=== PATIENT | male | born 1955 | race Caucasian/White ===

== ENCOUNTER → 2018-02-12 16:20 | Outpatient (CLI) | payer BC, SELFPAY ==
--- NOTE | 2018-02-12 16:29 | XR_ITS ---
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 The lungs are clear without infiltrates, suspicious nodules, or pleural effusions. No acute bony abnormalities. Degenerative changes thoracic spine. Old granulomatous disease IMPRESSION: No change with no acute finding.
== END ==
PROVIDERS: PCP Internal Medicine; Visit Provider Nurse Practitioner
DX: L40.0 Psoriasis vulgaris (principal); Z79.899 Other long term (current) drug therapy
CPT/HCPCS: 71046

== ENCOUNTER → 2022-02-16 08:11 | Outpatient (CLI) | payer BC, SELFPAY ==
--- NOTE | 2022-02-16 08:11 | US_ITS ---
FINAL REPORT TECHNIQUE: Multiple transverse and longitudinal images CLINICAL HISTORY: elevated liver enzymes FINDINGS: There are small gallstones without acute gallbladder disease. No biliary ductal dilatation is appreciated. No fluid collections are seen. Limited portions of the right liver are unremarkable. Limited portions of the right kidney are unremarkable. IMPRESSION: 1. Cholelithiasis. 2. No evidence of biliary obstruction Reviewed, Interpreted and Dictated by Gavin Cantrell MD Transcribed by Darby Monzon Authenticated and . [facility]
[2022-02-16 09:46] LABS: Basophils # 0.1 K/mm3 (0-0.2); Eosinophils # 0.2 K/mm3 (0.0-0.4); Eosinophils % 2.7 % (0.1-12.0); Hematocrit 46.1 % (42.0-52.0); Hemoglobin 16.3 g/dL (14.1-18.0); Lymphocytes # 1.7 K/mm3 (0.7-4.5); Lymphocytes % 25.3 % (10-50); Mean Corpuscular HGB Conc 35.3 g/dL (31.8-35.4); Mean Corpuscular Hemoglobin 36.4 pg (27.0-31.2); Mean Corpuscular Volume 103.2 fl (80-94); Mean Platelet Volume 7.2 fl (7.4-10.4); Monocytes # 0.5 K/mm3 (0.1-1.0); Monocytes % 7.5 % (1.7-9.3); Neutrophils # 4.3 K/mm3 (1.8-7.8); Neutrophils % 63.5 % (37.0-80.0); Platelet Count 201 K/mm3 (142-424); Red Blood Count 4.47 M/mm3 (4.60-6.20); Red Cell Distribution Width 14.5 % (11.5-17.5); White Blood Count 6.7 K/mm3 (4.8-10.8)
[2022-02-16 09:50] LABS: INR 1.22 (0.9-1.1)
[2022-02-16 09:54] LABS: Alanine Aminotransferase 639 U/L (12-78); Albumin Level 3.6 g/dl (3.5-5.0); Albumin/Globulin Ratio 1.2 (1.1-1.8); Alkaline Phosphatase 105 U/L (38-126); Anion Gap 13.1 mEq/L (5-15); Aspartate Amino Transferase 220 U/L (17-59); Bilirubin,Total 0.9 mg/dl (0.2-1.3); Blood Urea Nitrogen 28 mg/dl (9-20); Calcium 8.6 mg/dl (8.4-10.2); Carbon Dioxide 28 mmol/L (22.0-30.0); Chloride 102 mmol/L (98-107); Estimated Glomerular Filt Rate 85 ml/min (>60); GFR (African American) 103 ML/MIN (>60); Gamma Glutamyl Transpeptidase 131 U/L (15-73); Globulin 3.1 g/dL (1.3-3.2); Glucose 157 mg/dl (74-100); Lactate Dehydrogenase 237 U/L (313-618); Potassium 4.1 mmoL/L (3.5-5.1); Sodium 139 mmol/L (136-145); Total Protein,Serum 6.7 g/dl (6.3-8.2)
[2022-02-16 10:49] LABS: Erythrocyte Sedimentation Rate 16 mm/hr (0-20)
[2022-02-17 18:39] LABS: Hep A Ab, IgM Negative; Hepatitis B Core Antibody IgM Negative; Hepatitis B Surface Antigen Negative; Hepatitis C Antibody <0.1
== END ==
PROVIDERS: PCP Family Medicine; Visit Provider Family Medicine
DX: R74.8 Abnormal levels of other serum enzymes (principal)
CPT/HCPCS: 36415; 76705; 80053; 80074; 82977; 83615; 85025; 85610; 85651

== ENCOUNTER 2023-04-07 11:14 | Emergency (ER) | payer MEDICARE, SELFPAY ==
[2023-04-07 12:00] VITALS: BP 115/59; PULSE 53; RESP 18; TEMP 36.6; O2SAT 98; BMI 31.7
--- NOTE | 2023-04-07 12:05 | EXP.UTC ---
Discharge Plan Disposition Patient Disposition: Home, Self-Care Condition: Good Prescriptions Prescriptions: New azithromycin [Zithromax] 250 mg tablet 250 mg PO UD DOSE PK Qty: 6 0RF Rx Instructions: Take two (2) tablets today, then one (1) tablet days #2 thru #5 benzonatate [benzonatate] 100 mg capsule 100 mg PO TIDP PRN (Reason: Cough) Qty: 30 0RF methylprednisolone 4 mg Tablets,Dose Pack 4 mg PO DIRECTED Qty: 21 0RF No Action ezetimibe 10 mg tablet 10 mg PO DAILY Farxiga 10 mg tablet 10 mg PO DAILY triamcinolone acetonide 0.1 % cream topical omeprazole 40 mg capsule,delayed release(DR/EC) 40 mg PO DAILY 90 Days Qty: 90 0RF diclofenac sodium 75 mg tablet,delayed release (DR/EC) 75 mg PO BID 30 Days Qty: 60 2RF olmesartan-hydrochlorothiazide 20-12.5 mg tablet See Rx Instructions .ROUTE .COMPLEX Qty: 90 0RF Dose Instruction: Take 1 tablet by mouth Daily. Rx Instructions: Take 1 tablet by mouth Daily. ezetimibe 10 mg tablet 10 mg PO DAILY Skyrizi 150 mg/mL pen injector 150 mg SQ MONTHLY amitriptyline 25 mg tablet 25 mg PO DAILY Referrals Follow up/Referrals: Eric Nelson MD [Primary Care Provider] - See instructions Activity Restrictions/Add. Instructions Additional Instructions/Restrictions: Drink plenty of fluids. Take tylenol or ibuprofen for pain or fever. Take the medications as directed. Follow up with your regular doctor. GO TO THE ER FOR ANY WORSENING SYMPTOMS Clinical Impressions Clinical Impression: Sinusitis Instructions Patient Instructions: Sinusitis, DI for Sinusitis Discharge ED Provider: [place] [facility] [place] General Stated complaint: UPPER RESPITORY Time Seen by Provider: 04/07/23 12:05 History of Present Illness Provider Complaint: He reports that for the past 3 days he has had worsening sinus congestion. Related Data Home Medications Medication Instructions Recorded Confirmed dapagliflozin propanediol 10 mg 10 mg PO DAILY diabetes 02/13/22 04/07/23 tablet (Farxiga) ezetimibe 10 mg tablet 10 mg PO DAILY 09/04/22 04/07/23 triamcinolone acetonide 0.1 % applic topical 12/11/22 03/18/23 topical cream amitriptyline 25 mg tablet 25 mg PO DAILY 04/07/23 04/07/23 ezetimibe 10 mg tablet 10 mg PO DAILY 04/07/23 04/07/23 risankizumab-rzaa 150 mg/mL 150 mg SQ MONTHLY 04/07/23 04/07/23 subcutaneous pen injector (Kaitlinizallen) Previous Rx's Medication Instructions Recorded omeprazole 40 mg capsule,delayed 40 mg PO DAILY GERD 90 days #90 11/12/22 release caps diclofenac sodium 75 mg 75 mg PO BID arthritis 30 days #60 01/08/23 tablet,delayed release tabs olmesartan 20 See Rx Instructions .Route 02/26/23 mg-hydrochlorothiazide 12.5 mg .COMPLEX #90 tabs tablet azithromycin 250 mg tablet 250 mg PO UD DOSE PK #6 tabs 04/07/23 (Zithromax) benzonatate 100 mg capsule 100 mg PO TIDP PRN Cough #30 caps 04/07/23 methylprednisolone 4 mg tablets in 4 mg PO DIRECTED #21 tabs 04/07/23 a dose pack Allergies Allergy/AdvReac Type Severity Reaction Status Date / Time No Known Allergies Allergy Verified 04/07/23 12:19 [facility] Disclaimer: The information contained in this section may have been updated after the patient was seen, as this information can be updated by other users. Medical History Arthritis Diabetes mellitus GERD (gastroesophageal reflux disease) Hyperlipidemia Hypertension Psoriasis Surgical History H/O hernia repair Laceration of right hand with foreign body Family History Mother Coronary artery disease Father Coronary artery disease Social History Smoking Status: Never smoker alcohol intake: current substance use type: chula
[2023-04-07 12:37] VITALS: BP 115/59; PULSE 53; RESP 18; TEMP 36.6; O2SAT 98
== END 2023-04-07 12:37 | disposition home or self-care (01) ==
PROVIDERS: Emergency Provider Nurse Practitioner Family; PCP Family Medicine
DX: J01.90 Acute sinusitis, unspecified (principal); R09.81 Nasal congestion; E11.9 Type 2 diabetes mellitus without complications; E78.5 Hyperlipidemia, unspecified; K21.9 Gastro-esophageal reflux disease without esophagitis; I10 Essential (primary) hypertension; L40.9 Psoriasis, unspecified; Z79.84 Long term (current) use of oral hypoglycemic drugs
CPT/HCPCS: 99204; 99212; G0463

== ENCOUNTER 2025-04-12 13:40 | Outpatient (CLI) | payer MEDICARE, SELFPAY ==
[2025-04-12 13:47] LABS: Adenovirus F 40/41, stool Not Detected (NotDetected); Clostridium Difficile A/B, PCR Not Detected (NotDetected); Cyclospora Cayetanesis Not Detected (NotDetected); Plesimonas Shigalloides, PCR Not Detected (NotDetected); Salmonella, PCR Not Detected (NotDetected); Shiga-like toxin E coli Not Detected (NotDetected); Shigella Enterovasive E coli Not Detected (NotDetected); Vibrio, PCR Not Detected (NotDetected); Yersinia Entercolitica, PCR Not Detected (NotDetected)
--- OUTSIDE RECORDS SUMMARY | 2025-04-12 13:54 | XMS_ITS | Data Portability ---
Author Organization [facility] Emanuel LACEY Huerta [place] [facility] Address [address] [place] [address] Assessment No assessment recorded. Plan of Treatment Reminders Order Date Submit Date Provider Last Modified By Organization Details Last Modified Time Details Appointments None record ed. Lab None record ed. Referral None record ed. Procedures None record ed. Surgeries None record ed. Imaging None record ed. Medication Orders None record ed. Patient TargetsNo targets recorded. Patient Instructions Encounter Date Encounter Id Patient Instructions Last Modified By Organization Details Last Modified Time 04/17/2022 [id number] I have discussed the situation, differential diagnosis, and recommendation with the patient. He express understanding and wishes to proceed as recommended. Thank you for this consultation. [email or web address] Not available 04/17/2022 14:43:41 Reason for Referral None Reported. Results Created Date Observation Date Name Description Value Unit Range Abnormal Flag Note LastModifiedBy Organization Detail LastModifiedTime 04/17/20 22 04/17/2022 HEPAT IC (LIVE R) PANEL AST 32 U/L 0-40 normal Not Available [facility] [address] [place], [address], 04/17/2022 15:54:39 04/17/20 22 04/17/2022 HEPAT IC (LIVE R) PANEL ALT 68 U/L 0-41 high Not Available [facility] [address] [place], [address], 04/17/2022 15:54:39 04/17/20 22 04/17/2022 HEPAT IC (LIVE R) PANEL alkaline phosphatase 71 U/L 40-129 normal Not Available [facility] [address] [place], [address], 04/17/2022 15:54:39 04/17/20 22 04/17/2022 HEPAT IC (LIVE R) PANEL total protein 7.2 g/dL 6.4-8. 3 normal Not Available [facility] [address] [place] [address], [phone], 04/17/2022 15:54:39 04/17/20 22 04/17/2022 HEPAT IC (LIVE R) PANEL albumin 3.8 g/dL 3.5-5. 2 normal Not Available [facility] [address] [place] [address], [phone], 04/17/2022 15:54:39 04/17/20 22 04/17/2022 HEPAT IC (LIVE R) PANEL bilirubin, total 0.5 mg/dL 0.1-1. 2 normal Not Available [facility] [address] [place] [address], [phone], 04/17/2022 15:54:39 04/17/20 22 04/17/2022 HEPAT IC (LIVE R) PANEL bilirubin, direct <0.2 mg/dL 0.0-0. 3 normal Not Available [facility] [address] [place] [address], [phone], 04/17/2022 15:54:39 04/17/20 22 04/17/2022 HEPAT IC (LIVE R) PANEL bilirubin, indirect see below mg/dL _(lc c) 0.0-1. 0 normal Unabl e to calcu late Indir ect Bilir ubin. Not Available [facility] [address] [place] [address], [phone], 04/17/2022 15:54:39 04/17/20 22 04/19/2022 RUPINDER SCREE N, IFA RUPINDER screen NEGATI VE negati ve normal RUPINDER IFA is a first line scree n for detec ting the prese nce of up to appro ximat saurav 150 autoa ntibo dies in vario us autoi mmune disea ses. A negat kavon RUPINDER IFA resul t sugge sts an RUPINDER-a ssoci ated autoi mmune disea se is not prese nt at this time, but is not defin itive . If there is high clini lc suspi cion for Sjogr en's syndr ome, testi ng for anti- SS-A/ Ro antib daniel shoul d be consi dered . Anti- Jessica-1 antib daniel shoul d be consi dered for clini jurgen suspe cted infla mmato ry myopa gertrude . AC-0: Negat kavon Inter natio nal Conse nsus on RUPINDER Malcom rns (http s://d oi.or g/10. 1515/ [facility]2017- 0052) For addit ional infor jen gilbert e refer to http: //[facility].Que stDia gnost ics.c om/fa q/FAQ 177 (This link is being provi ded for infor matio nal/ educa darshana l purpo ses only. ) TEST PERFO RMED AT: [facility] [address] [place] [address] JOSÉ MIGUEL Wood MD Not Available [facility] [place], [address], 04/19/2022 19:41:41 Result Notes None recorded. Problems Name Problem SNOMED Code Status Onset Date Resolution Date Notes Provider Name and Address Organization Details Recorded Time Greater trochante yusef pain syndrome 6089316 Active 2014 From [employer]ated [employer];Provi kaity: Norberto Corcoran;Sta tus: Active Not Available [facility] 6 10:01:56 Idiopathi c osteoarth ritis 111063024 Active 2014 From Automated Load;Provi kaity: Harpreet Schuster;Stat us: Active Not Available [facility] 10:02:38 Gluteal tendiniti s 82694993 Active 2014 From Automated Load;Provi kaity: Brook Rod;Sta tus: Active Not Available [facility] 6 10:02:38 Liver enzymes level above reference range 430719163 Active 2021 LAUREN LOPES MD [address] [place] [address], [phone] , [facility] 2 14:42:31 Problem Notes None recorded. Procedures Surgical History Date Name Laterality Status Provider Name and Address Organization Details Recorded Time 0 colonoscopy completed [facility] 04/17/2022 14:24:31 9 Hernia repair w/mesh completed [facility] 04/17/2022 14:24:18 Imaging Results None recorded. Procedure Notes None recorded. Medical Equipment None Reported. Allergies No known drug allergies Medications Name Sig Start Date Stop Date Status Note LastModified by Organization Details LastModified Time atorvasta tin 40 mg tablet Take 1 tablet every day by oral route. active Not Available Not Available No t Available Keflex 500 mg capsule Four times a day 04/17 completed Frequenc y: qid;Medi cation Descript ion: cephalex in; Dosage:1 ; Route:or al; refills: 0 Not Available Not Available Not Available omeprazol e 40 mg capsule,d elayed release Take 1 capsule every day by oral route. active Not Available Not Available No t Available diclofena c sodium 75 mg tablet,de layed release Take 1 tablet twice a day by oral route. active Not Available Not Available No t Available [place] 7.5 mg-325 mg tablet 04/17 completed Medicati on Descript ion: acetamin ophen-hy drocodon e; Route:or al; refills: 0; Quantity :6 tablet Not Available Not Available Not Available olmesarta n 20 mg-hydroc hlorothia zide 12.5 mg tablet Take 1 tablet every day by oral route. active Not Available Not Available No t Available meloxicam active Not Available Not Nathalie ilable Not Available Centrum Silver active Not Available Not Available Not Available Benicar Daily 04/17 completed Duration : 30 days;Salty quency: daily;Me dication Descript ion: olmesart an; Dosage:1 ; Route:or al; refills: 0; Quantity :30 tablet Not Available Not Available Not Available Farxiga 10 mg tablet Take 1 tablet every day by oral route. active Not Available Not Available No t Available Otezla 30 mg tablet 04/17 completed Medicati on Descript ion: apremila st; Route:or al; refills: 0 Not Available Not Available Not Available Cosentyx active Not Available Not Avai lable Not Available Vitals Date Recorded Body weight Heart rate Respiratory rate Systolic And Diastolic Provider Name and Address Organization Details Last Updated DateTime 04/17/2022 536697.47 g 85 /min 16 /min 132/70 mm[Hg] Eda Ramos [facility] 04/17/2022 14:21:37 Social History Question Answer Notes LastModified by Organizat ion Details LastModified Time Tobacco Smoking Status Never Smoker Edarafael Ramos [facility] 04/17/2022 14:24:05 What Was The Date Of Your Most Recent Tobacco Screening? 04/17/2022 Information not available 04/17/2022 Has Tobacco Cessation Counseling Been Provided? No Information not available 04/17/2022 Sex: Unknown Functional Status Question Answer Note LastModified by Organizat ion Details LastModified Time Do you use any illicit or recreational drugs? No Information not available 04/17/2022 Do you or have you ever used any other forms of tobacco or nicotine? No Information not available 04/17/2022 What is your level of alcohol consumption? Occasional Information not available 04/17/2022 Mental Status None recorded. Family History Nothing Reported. Medical History No medical history recorded. Past Encounters Encounter ID Performer Location Encounter Start Date Encounter Closed Date Diagnosis/Indication Diagnosis SNOMED-CT Code Diagnosis ICD10 Code Diagnosis IMO Codes Diagnosis Note [id number] LAUREN LOPES MD [facility] [address] [facility], [address] [place] [address] 04/17/2022 14:08:09 04/18/2022 08:39:39 Liver enzymes level above reference range 708801497 R74.01 Suspect medication related vs autoimmune condition. Labs exacerbate d by fatty liver disease. Will recheck labs and add RUPINDER today. If LFTs are not better, will then consider liver biopsy. Health Concerns Section Related Observation LastModified by Organization Detai ls LastModified Time None Recorded Concern Status LastModified by Organization Details LastModified Time None Recorded Advance Directives Directive None Recorded Payers Insurance Date Sequence Insurance Name Policy Number Policy Haney Covered Member ID Haney Member ID Guarantor Name 04/19/2022 1 [place] [id number] 2 Braulio Wilks [id number] Braulio Wilks Notes Date Note Type Note Provider Name and Address Organization Details Recorded Time 04/17/2022 text/html This is a pleasant 66 yom with here in the office for discussion of chronic hepatitis C, ALT more than 400. The patient was made aware of this finding months ago. There is no history of high risk behavior. Patient denies history of IV drug abuse. There is no history of blood transfusions. Patient denies alcohol abuse and there is no history of jaundice. Patient has no tattoos and reports no recent history of travel outside of the local area. Appetite and weight has been stable and there is no reports of fever or chill. Overall at the present time the patient feels just fine. There is no history of previous treatment. He also denies any recent antibiotic intake. Additional info:hepatitis panel, US negative other than some stones. He stopped Cosyentx and Lipitor for about a month now. LAUREN LOPES MD [address] [place] [address], [phone], [facility] 04/17/2022 14:44:27
--- OUTSIDE RECORDS SUMMARY | 2025-04-12 13:54 | XMS_ITS | Encounter Summary ---
Author Organization [facility] Address [address] [place] [address] Care Team Providers Care Speech Communication Instructor Name Role Phone Stephane Mckay MD Primary Care Provider [phone] Eric Nelson MD Primary Care Provider Vicki vailable Reason for Visit * Reason Comments Med Refill Encounter Details Date Type Department Care Team (Late st Contact Info) Description 01/04/2023 [address]ill [facility] [address], [address] [place] [address] Jimmy Valencia MD [address] [place] [address] Social History Tobacco Use Types Packs/Day Years Used Date Smoking Tobacco: Never Assessed Sex and Gender Information Value Date Recorded Sex Assigned at Not on file Legal Sex Male 7:55 PM EDT Gender Identity Not on file Sexual Orientation Not on file documented as of this encounter Plan of Treatment Not on file documented as of this encounter Visit Diagnoses Not on filedocumented in this encounter Additional Health Concerns Assessment Noted Time A fall risk assessment has been complete d for the patient 12/11/2021 10:17 AM EDT documented as of this encounter Care Teams Speech Communication Instructor Relationship Specialty Start Date End Date Stephane Mckay MD [address] [address] PCP - General 10/30/21 04/07/23 Eric Nelson MD [address] [place] [address] PCP - General Family Medicine 04/08/23 documented as of this encounter
--- OUTSIDE RECORDS SUMMARY | 2025-04-12 13:54 | XMS_ITS | Encounter Summary ---
Author Organization Healthcare Address [address] [place] [address] Care Team Providers Care Mechanical Applications Engineer Name Role Phone Stephane Mckay MD Primary Care Provider [phone] Eric Nelson MD Primary Care Provider Vicki vailable Encounter Details Date Type Department Care Team (Late st Contact Info) Description 10/12/2021 Orders Only External Location [address] [place] [address] Stephane Mckay MD [address] [place] [id number] Social History Tobacco Use Types Packs/Day Years Used Date Smoking Tobacco: Never Assessed Sex and Gender Information Value Date Recorded Sex Assigned at Not on file Legal Sex Male 7:55 PM EDT Gender Identity Not on file Sexual Orientation Not on file documented as of this encounter Plan of Treatment Not on file documented as of this encounter Procedures Procedure Name Priority Date/Time Associated Diagnosis Comments MR MSK OUTSIDE IMAGES 10/12/2021 11:23 AM EDT documented in this encounter Results * MR MSK OUTSIDE IMAGES (10/12/2021 11:23 AM EDT) Anatomical Region Laterality Modality Magnetic Resonan ce 10/12/2021 11:2 3 AM EDT Stephane Mckay MD IMG MRI PROCEDURES Final Re sult documented in this encounter Visit Diagnoses Not on filedocumented in this encounter Care Teams Mechanical Applications Engineer Relationship Specialty Start Date End Date Stephane Mckay MD [address] [address] PCP - General 10/30/21 04/07/23 Eric Nelson MD [address] [address] PCP - General Family Medicine 04/08/23 documented as of this encounter
--- OUTSIDE RECORDS SUMMARY | 2025-04-12 13:54 | XMS_ITS | Clinical Summary ---
Author Organization [facility] Address [address] [place] [address] Care Team Providers Care Supervisor Shuttle Fitting Name Role Phone Eric Nelson MD Primary Care Provider Vicki vailable Allergies No known active allergies Medications omeprazole (PriLOSEC) [address] capsule Take 1 capsule (40 mg) by mouth 1 (one) time each day. 3 Active ezetimibe (Zetia) 10 MG tablet Take 1 tablet (10 mg) by mouth 1 (one) time each day. 3 Active Farxiga 10 MG tablet Take 1 tablet (10 mg) by mouth 1 (one) time each day. 3 Active Skyrizi Pen 150 MG/ML solution auto-injector Inject 1 mL under the skin every 3 (three) months. Last dose May 10, 2023 3 Active olmesartan-hydr oCHLOROthiazide (BENIcar HCT) 20-12.5 MG tablet Take 1 tablet by mouth 1 (one) time each day. Active Multiple Vitamins-Minera ls (Centrum Silver 50+Men) tablet Take 1 tablet by mouth 1 (one) time each day. Active apixaban (Eliquis) 2.5 MG tablet Take 1 tablet (2.5 mg) by mouth 2 (two) times a day. For 4 weeks post-op for blood clot prevention 56 tablet 4 Active gabapentin (Neurontin) 100 MG capsule Take 1 capsule (100 mg) by mouth 3 (three) times a day. If this medication makes you drowsy you may take it only at bedtime 30 capsule Active Additional Information Patient not taking.Reported on 07/22/2023 acetaminophen (Tylenol Extra Strength) 500 MG tablet Take 2 tablets (1,000 mg) by mouth every 8 (eight) hours. 100 tablet Active traMADol (Ultram) 50 MG tablet Take 1 tablet (50 mg) by mouth every 4 (four) hours if needed for moderate pain. Take 1 or 2 tablets every 4-6 hours as needed for pain 60 tablet Active Additional Information Patient not taking.Reported on 07/22/2023 Active Problems Problem Noted Date Diagnosed Date Hip pain, left 05/06/2023 Hip arthritis 05/06/2023 Family History Medical History Relation Name Comments Anesthesia problems Neg Hx Malig Hyperthermia Neg Hx Social History Tobacco Use Types Packs/Day Years Used Date Smoking Tobacco: Never Smokeless Tobacco: Never Alcohol Use Standard Drinks/Week Comments Yes 2 (1 standard drink = 0.6 oz pur e alcohol) 2 drinks/weekly PHQ-2 Answer Date Recorded Patient Health Questionnaire-2 Score 0 06/21/2023 Sex and Gender Information Value Date Recorded Sex Assigned at Not on file Legal Sex Male 7:55 PM EDT Gender Identity Not on file Sexual Orientation Not on file Last Filed Vital Signs Vital Sign Reading Time Taken Comments Blood Pressure 105/69 07/22/2023 12:44 PM EST Pulse 86 07/22/2023 12:44 PM EST Temperature 36.7 C (98 F) 06/07/2023 11:56 AM EST Respiratory Rate 15 06/06/2023 1:14 PM EST Oxygen Saturation 96% 07/22/2023 12:44 PM EST Inhaled Oxygen Concentration - - Weight 96.4 kg (212 lb 8.4 oz) 07/22/2023 12:44 PM EST Height 175.3 cm (5' 9 ) 07/22/2023 12:44 PM EST Body Mass Index 31.38 07/22/2023 12:44 PM EST Plan of Treatment Health Maintenance Due Date Last Done Comments [facility]-Hepatitis C Screening 1955 [facility]-Medicare Annual Wellness (AWV) 1955 [facility]-/Child/Adol SDOH Screenings 1955 Y- SDOH Screenings 10/05/1975 [facility]-Adult SDOH Screenings 10/05/1975 CT Colonography 2002 Colonoscopy 2002 FIT-DNA 2002 FIT 2002 FOBT 2002 Sigmoidoscopy 2002 [facility]-Colorectal Cancer Screening 2002 [facility]-RSV Vaccine: 60+ Years or (1 - Risk 60-74 years 1-dose series) 2017 [facility]-Depression Screening 06/21/2024 06/21/2023 GEV-[id number]-69 Vaccine ( - season) 2025 05/18/2022, 06/13/2021, 08/19/2020, Additional history exists [facility]-Influenza Vaccine (#1) 2025 02/21/2022, [facility]-DTaP,Tdap,and Td Vaccines (2 - Td or Tdap) 11/07/2027 11/06/2017 [facility]-Diabetes: Hemoglobin A1C Discontinued 04/19/2022, 12/30/2019 [facility]-Pneumococcal Vaccine: 50+ Years Completed 12/12/2022, 11/14/2018 [facility]-Zoster Vaccines Completed 02/12/2023, [facility]-Obesity Intervention Completed 024, 06/21/2023, 05/06/2023, Additional history exists HPV Vaccines Aged Out No longer eligi ble based on patient's age to complete this topic [facility]-HIB Vaccines Aged Out No longer e ligible based on patient's age to complete this topic [facility]-Hepatitis A Vaccines Aged Out No longer eligible based on patient's age to complete this topic [facility]-IPV Vaccines Aged Out No longer e ligible based on patient's age to complete this topic [facility]-Rotavirus Vaccines Aged Out No lo nger eligible based on patient's age to complete this topic Medical Devices Implanted Type Area Customer Success Intern Device Identifier Shelf Expiration Date Model / Serial / Lot Mesh Mesh Right: Abdomen Chg Shell R3 3 Hole Acet 54mm - [id number] Implanted:Qty : 1 on 06/06/2023 by Yony Beard MD at [facility] Left: Hip [employer]-[id number] 09/25/2032 [id number] / / [id number] Chg Screw Ref Spher Head 30mm - [id number] Implanted:Qty : 1 on 06/06/2023 by Yony Beard MD at [facility] Left: Hip [employer]-[id number] 08/14/2032 [id number] / / [id number] Liner Or3o Dual Mbility 42 54 - [id number] Implanted:Qty : 1 on 06/06/2023 by Yony Beard MD at [facility] Left: Hip [employer]-[id number] 02/15/2033 [id number] / / [id number] Liner Or3o Dual Mbility Xlpe 28 42 - [id number] Implanted:Qty : 1 on 06/06/2023 by Yony Beard MD at [facility] Left: Hip [employer]-[id number] 01/07/2033 [id number] / / [id number] Chg Head Oxinium Fem 05/02 28m - [id number] Implanted:Qty : 1 on 06/06/2023 by Yony Beard MD at [facility] Left: Hip [employer]-[id number] 08/14/2032 [id number] / / [id number] Chg Stem Anthology Ho Por Pl H - [id number] Implanted:Qty : 1 on 06/06/2023 by Yony Beard MD at [facility] Left: Hip [employer]-[id number] 02/09/2033 [id number] / / [id number] Insurance [address] [place] [address] MEDICARE Advance Directives * Full Code (Latest Code Status on File) Date Activated Date Inactivated Comments 06/06/2023 8:48 AM 06/07/2023 3:04 PM Question Answer Comments Patient has decision-making capacity? Yes Care Teams Supervisor Shuttle Fitting Relationship Specialty Start Date End Date Eric Nelson MD PCP - General Family Medicine 04/08/23
--- OUTSIDE RECORDS SUMMARY | 2025-04-12 13:54 | XMS_ITS ---
Author Organization [facility] Address [address] [place] [address] Care Team Providers Care Nephrology Nurse Name Role Phone Eric Nelson MD Primary Care Provider [phone] L[facility] Endocrine Disorders Status:Enrolled (Active) Start date:12/25/2021 Enrollment date:01/01/2022 Enrollment reason:Converted fill to Current support & services provided:Clinical Assessment, Refill Coordination , Benefits Investigation, Copay Assistance, [facility] Dispensing Linked medications:Dapagliflozin Propanediol (Active) Linked problems:Type 2 diabetes mellitus with hyperglycemia, without long-term current use of insulin (Active) Overview Endo [facility] through 05/19/2029 Case Team Name Relationship Phone Orquidea Dasilva PharmD Pharmacist Ale Simmons Surveyor Helper Rod Ash Handler Continued Care and Services Coordination
--- OUTSIDE RECORDS SUMMARY | 2025-04-12 13:54 | XMS_ITS | Clinical Summary ---
Author Organization [facility] Address [address] [place] [address] [address] [place] [address] Phone Care Team Providers Care Mental Health Associate Name Role Phone Herve Verdugo MD Unavailable [phone] [ ] Conditions or Problems Problem Name Problem Code Onset Date Status Entry Date Provider Comment Standard Description Annotate HISTOPLASMOSIS 58534743 (SNOMED CT) 12/09 Active 12/09 Herve Verdugo MD Histoplasmosis PSORIASIS: NEED CLEARANCE FOR STELARA/HUMIRA 696.1 (ICD-9-CM ) 11/28 Active 11/28 Dian Virgen Other psoriasis IMMUNOSUPPRESSED : ON MEDICATION D84.9 (ICD-10-C M) 11/28 Active 11/28 Dian Virgen Immunodeficienc y, unspecified CHEST X-RAY: LT HILAR GRANULOMATOUS CALCIFICATION R68.89 (ICD-10-C M) 11/28 Active 11/28 Dian Virgen Other general symptoms and signs Medications Medication Instructions Start Date Stop Date Generic Name [facility] Provider BENICAR 20 MG TABS 8 OLMESARTAN MEDOXOMIL [id number] Herve QUEZADA 1 USTEKINUMAB SOLN [id number] Herve VENTURA SOLZaida 1 USTEKINUMAB SOLN [id number] Rachel G TOPICORT OINT 1 DESOXIMETASONE OINT [phone] Rachel G PROTOPIC OINT 1 TACROLIMUS OINT [phone] Rachel G Medications Administered No information available. 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 Lab Report: CBC w Auto Diff BASOPHIL % 0.3 % 0.0-1.0 N Basophils/ 100 leukocytes in Blood by Manual count % EOS AUTO 2.8 % 0.0-3.0 N Eosinophil s/100 leukocytes in Blood by Automated count MONOCYTE BF 6.2 % 0.0-12.0 N monocyte s as percent of body fluid leukocytes LYMPHS % 24.0 % 24.0-44.0 N Lymphocyte s/100 leukocytes in Blood by Automated count PMN % 66.7 % 41.0-71.0 N Neutrophils /100 leukocytes in Blood by Automated count BASOABSOLMAN 0.02 K/MCL {Cells}/ uL 0.00-0.20 N basophils, absolute, manual EOS ABSLT 0.21 10*3/uL 0.10-0.30 N Eosinophi ls [#/volume] in Blood MONOCYTABMAN 0.47 K/MCL {Cells}/ uL 0.00-1.00 N monocytes, absolute, manual LYMPHSABSMAN 1.82 K/MCL {Cells}/ uL 0.60-4.80 N lymphocytes, absolute, manual ABS NEUTROPH 5.06 10*3/uL 1.50-8.30 N Neutro phils [#/volume] in Blood PLATELETS 217 10*3/mm3 150-450 N Platelets [#/volume] in Blood by Automated count RDW_ 13.0 11.3-14.5 N RDW, no uni ts MCHC 34.2 G/DL 32.0-36.0 N MCHC [Mass/ volume] by Automated count MCH 33.4 pg 27.0-31.0 H MCH [Entiti c mass] by Automated count MCV 97.8 fL 80.0-99.0 N MCV [Entiti c volume] by Automated count HCT 44.2 % 38.9-50.9 N Hematocrit [Volume Fraction] of Blood by Automated count HGB 15.1 g/dL 13.1-17.5 N Hemoglobin [Mass/volume] in Blood RBC 4.52 M/MCL 10*6/mm3 4.20-5.76 N Erythro cytes [#/volume] in Blood by Automated count WBC 7.58 10*3/mm3 3.50-10.80 N Leukocyte s [#/volume] in Blood by Automated count Lab Report: Comprehensive Me tabolic Panel ANIONGAP 9 mmol/L 3-11 N anion gap, s rosangela GFRC 92 mL/min/1 .73m2 Glomerular Filtration Rate Calculation ALBUMIN 4.2 g/dL 3.4-4.8 N Albumin [Mass/volume] in Serum or Plasma PROTEIN, TOT 7.7 g/dL 6.4-8.3 N Protein [Mass/volume] in Serum or Plasma BILI TOTAL 0.5 mg/dL 0.3-1.2 N Bilirubin. total [Mass/volume] in Serum or Plasma SGPT (ALT) 25 U/L 7-40 N Alanine aminotransferase [Enzymatic activity/volume] in Serum or Plasma SGOT (AST) 21 U/L 8-33 N Aspartate aminotransferase [Enzymatic activity/volume] in Serum or Plasma ALK PHOS 89 U/L 25-100 N Alkaline phosphatase [Enzymatic activity/volume] in Blood CALCIUM 9.5 mg/dL 8.7-10.4 N Calcium [Moles/volume] in Serum or Plasma CO2 33 mmol/L 20-31 H Carbon dioxid e, total [Moles/volume] in Venous blood CHLORIDE 102 mmol/L 98-107 N Chloride [Moles/volume] in Serum or Plasma POTASSIUM 3.7 mmol/L 3.4-5.4 N Potassium [Moles/volume] in Serum or Plasma SODIUM 144 mmol/L 136-145 N Sodium [Moles/volume] in Serum or Plasma CREATININE 0.9 mg/dL 0.6-1.3 N Creatinine [Mass/volume] in Serum or Plasma BUN 16 mg/dL 6-20 N Urea nitrogen [Mass/volume] in Serum or Plasma GLUCOSE SER 170 mg/dL 70-100 H Glucose [Mass/volume] in Serum or Plasma Lab Report: Fungal Antibodie s, Quant, Blastomyces Antigen, QuantiFERON T ... [id number] Negative Negative GE use on ly - for [employer] import when terms are not otherwise specified HIS AG UR 0.11 EU {EIA'U} Histoplasma capsulatum Ag [Units/volume] in Urine by Immunoassay TB QUANT Negative Negative Mycobacter ium tuberculosis stimulated gamma interferon [Interpretation] in Blood Qualitative HISTOPL AB Negative Neg:<1:1 Histopla sma capsulatum mycelial phase Ab [Titer] in Serum by Complement fixation COCCIDIOD AB Negative ng/mL Neg:<1:1 Coccid ioides immitis IgG Ab [Units/volume] in Cerebral spinal fluid BLASTOMYC AB Negative Neg:<1:1 Blasto myces dermatitidis Ab [Titer] in Serum ASPER NIGER Negative Neg:<1:1 ASPERGI LLUS NIGER A FLAVUS Negative Neg:<1:1 ASPERGILLU S FLAVUS ASPERFUMIGE Negative Neg:<1:1 Aspergi llus fumigatus IgE Ab/IgE total in Serum Office Visit: f/u rm 3 MEDS REVIEW Done Documenta tion of current medications (procedure) Plan of Care Type Date Detail Pending order X-Ray, Chest, PA & Lateral Pending order X-Ray, Chest, PA & Lateral Pending order CMP Pending order CBC with Differe ntial Pending order Histoplasmosis U rinary AG Pending order Blastomyces Urin shonna Antigen Pending order Cryptococcus Ant igen Serum Pending order Quantiferon Gold TB Assay Pending order Other Procedures Code Procedure Name Date Entry Date CPT-91784 CMP CPT-89762 CBC with Differential 0 12/09 CPT-81317 Histoplasmosis Urinary AG 20 04/25/23 CPT-84896 Blastomyces Urinary Antigen CPT-39091 Cryptococcus Antigen Serum 2 CPT-82148 Quantiferon Gold TB Assay 20 04/25/23 CPT-LAB Other Vital Signs Date Name Value Unit Description BMI (Body Mass Index) 38.98 kg/m2 Bod y Mass Index (Ratio) Body Temperature 98.4 [degF] temperat ure E&M BP Diastolic 78 mm[Hg] blood pressu re, diastolic BP Systolic 130 mm[Hg] blood pressur e, systolic Heart Rate 84 /min pulse rate Height 69 [in_us] height E&M Respiratory Rate 16 /min respirat ory rate E&M Weight Measured 263 [lb_av] weight E& M Weight Measured 263 [lb_av] weight E& M Immunizations No information available. Advance Directives No information available.
--- OUTSIDE RECORDS SUMMARY | 2025-04-12 13:54 | XMS_ITS | Clinical Summary ---
Author Organization [facility] Address [address] [place] [address] Care Team Providers Care Sheeter Waxer Operator Name Role Phone Eric Nelson MD Primary Care Provider [phone] Allergies No known active allergies Medications multivitamin with minerals tablet tablet Centrum Silver A ctive Triamcinolone Acetonide 0.05 % ointment Apply 1 application topically to the appropriate area as directed by provider 2 times a day for 2 weeks, THEN take a week break. Repeat as needed. 430 g 11 03/12/2023 1:33 PM EDT 3 Active dapagliflozin Propanediol (Farxiga) 10 MG tablet Take 1 tablet by mouth Daily. 90 tablet 3 03/22/2025 9:39 AM EST 4 Active ezetimibe (ZETIA) 10 MG tablet Take 1 tablet by mouth Daily. 90 tablet 3 03/22/2025 9:39 AM EST 5 Active omeprazole (priLOSEC) 40 MG capsule Take 1 capsule by mouth Daily for GERD 90 capsule 11/27/2024 8:40 AM EDT 5 Active Skyrizi Pen 150 MG/ML solution auto-injector Inject 150 mg under the skin into the appropriate area as directed Every 3 (Three) Months. 5 Active glucose blood (Accu-Chek [employer] Plus) test strip Use as directed to test blood glucose once daily 100 each 3 11/27/2024 8:40 AM EDT 5 Active Accu-Chek Softclix Lancets lancets Use as directed to test blood glucose once daily 100 each 3 11/27/2024 8:40 AM EDT Active omeprazole (priLOSEC) 40 MG capsule Take 1 capsule by mouth Daily for gerd. 90 capsule 03/09/2025 11:54 AM EDT Active olmesartan-hydr ochlorothiazide (BENICAR HCT) 20-12.5 MG per tablet Take 1 tablet by mouth Daily. 90 tablet 03/30/2025 12:41 PM EST 5 Active olmesartan-hydr ochlorothiazide (BENICAR HCT) 20-12.5 MG per tablet Take 1 tablet by mouth Daily. 90 tablet 12/22/2024 10:34 AM EDT 025 Discontin ued(Reord er) Active Problems Problem Noted Date Diagnosed Date Screening for prostate cancer 05/19/2024 Transaminasemia 04/19/2022 Assessment & Plan (05/19/2024 10:53 AM EST): Check LFTs today. Assessment & Plan (05/23/2023 12:03 PM EST): Check LFTs. Assessment & Plan (12/18/2022 8:30 AM EDT): Check LFTs today. Assessment & Plan (08/22/2022 11:10 AM EDT): Seeing manager utilization. Assessment & Plan (04/19/2022 8:30 AM EST): Labs from 01/2022 showed elevated LFTs. Seeing manager utilization. Type 2 diabetes mellitus wit h hyperglycemia, without long-term current use of insulin 03/09/2020 Overview (06/20/2021): Intolerant of metformin Assessment & Plan (11/26/2024 12:08 PM EDT): Diabetes is worsening. A1c above goal. Continue current treatment regimen. But work on diet/exercise. Resume FSBS. Diabetes will be reassessed in 6 months. Assessment & Plan (05/19/2024 10:48 AM EST): Diabetes is worsening. Continue current treatment regimen. Work on diet/exercise. Diabetes will be reassessed in 6 months. Assessment & Plan (05/23/2023 12:11 PM EST): Diabetes is worsening. A1c increased but at goal. Continue current treatment regimen. Diabetes will be reassessed in 3 months. Assessment & Plan (12/18/2022 8:34 AM EDT): Diabetes is improving with treatment. Continue current treatment regimen. Diabetes will be reassessed in 3 months. Assessment & Plan (08/22/2022 11:10 AM EDT): Diabetes is unchanged. A1c okay at 7.0%. Continue current treatment regimen. Diabetes will be reassessed in 3 months. Assessment & Plan (04/19/2022 8:30 AM EST): Diabetes is unchanged. Check A1c today. Will send note about results. Continue current treatment regimen. Diabetes will be reassessed in 3 months. Assessment & Plan (01/01/2022 12:08 PM EDT): Diabetes is improving with treatment. Titrate up farxiga. Diabetes will be reassessed in 3 months. Assessment & Plan (06/20/2021 2:50 PM EST): Diabetes is improving with lifestyle modifications. But still not at goal.. will add [id number] Diabetes will be reassessed in 3 months. Assessment & Plan (03/09/2021 10:18 AM EDT): Diabetes is worsening. he wants to work on diet and exercise Diabetes will be reassessed in 3 months. Assessment & Plan (09/07/2020 9:58 AM EDT): Diabetes is unchanged. Continue current treatment regimen. Diabetes will be reassessed in 6 months. Assessment & Plan (03/09/2020 12:13 PM EDT): Diabetes is unchanged. Continue current treatment regimen. Reminded to bring in blood sugar diary at next visit. Dietary recommendations for ADA diet. Regular aerobic exercise. Discussed ways to avoid symptomatic hypoglycemia. Discussed sick day management. Discussed foot care. Diabetes will be reassessed in 6 months. HTN (hypertension) 12/29/2019 Assessment & Plan (11/26/2024 12:09 PM EDT): Hypertension is stable and controlled. Continue current treatment regimen. Blood pressure will be reassessed in 6 months. Assessment & Plan (05/19/2024 10:45 AM EST): Hypertension is stable and controlled. Continue current treatment regimen. Blood pressure will be reassessed in 6 months. Assessment & Plan (05/23/2023 12:03 PM EST): Hypertension is unchanged. Continue current treatment regimen. Blood pressure will be reassessed at the next regular appointment. Assessment & Plan (12/18/2022 8:28 AM EDT): Hypertension is unchanged. Continue current treatment regimen. Blood pressure will be reassessed at the next regular appointment. Assessment & Plan (08/22/2022 11:10 AM EDT): Hypertension is unchanged. Continue current treatment regimen. Blood pressure will be reassessed at the next regular appointment. Assessment & Plan (04/19/2022 8:28 AM EST): Hypertension is unchanged. Continue current treatment regimen. Blood pressure will be reassessed at the next regular appointment. Assessment & Plan (01/01/2022 12:01 PM EDT): Hypertension is improving with treatment. Continue current treatment regimen. Blood pressure will be reassessed at the next regular appointment. HLD (hyperlipidemia) 12/29/2019 Assessment & Plan (11/26/2024 12:10 PM EDT): Continue ezetimibe. Statins caused elevated LFTs. Assessment & Plan (05/19/2024 10:48 AM EST): Continue ezetimibe. Check lipids today. Assessment & Plan (05/23/2023 12:11 PM EST): Continue ezetimibe. Check lipids today. Will send note about results. Assessment & Plan (12/18/2022 8:30 AM EDT): Continue ezetimibe. Check lipids. Assessment & Plan (08/22/2022 11:15 AM EDT): LDL above goal last visit after statin stopped due to elevated LFTs. Trial of ezetimibe. Assessment & Plan (04/19/2022 8:41 AM EST): Check lipids today. Statin was stopped due to elevated LFTs. Assessment & Plan (01/01/2022 12:00 PM EDT): Continue statin. Plan to check lipids next visit. Psoriasis 12/29/2019 Resolved Problems Problem Noted Date Diagnosed Date Resolved Date SBO (small bowel obstruction) 12/29/2019 01/01/2020 Leukocytosis 12/29/2019 01/01/2020 Family History Medical History Relation Name Comments COPD Father Dashawn Wilks Hypertension Father Dashawn Wilks COPD Mother Nirali Wilks Hypertension Mother Nirali Wilks Relation Name Status Comments Father Dashawn Wilks Mother Nirali Wilks Social History Tobacco Use Types Packs/Day Years Used Date Smoking Tobacco: Never Smokeless Tobacco: Never Tobacco Cessation:Counseling Given: Not Answered Alcohol Use Standard Drinks/Week Comments Yes 2 (1 standard drink = 0.6 oz pur e alcohol) social AUDIT-C Answer Date Recorded Q1: How often do you have a drink containing alc ohol? 2-3 times a week 03/09/2020 Q2: How many drinks containi ng alcohol do you have on a typical day when you are drinking? 1 or 2 03/09/2020 Q3: How often do you have si x or more drinks on one occasion? Never 03/09/2020 Sex and Gender Information Value Date Recorded Sex Assigned at Male 12/30/2021 7:58 PM EDT Legal Sex Male 1:25 PM EDT Gender Identity Male 12/30/2021 7:58 PM EDT Sexual Orientation Straight 12/30/2021 7: 58 PM EDT Last Filed Vital Signs Vital Sign Reading Time Taken Comments Blood Pressure 104/66 11/26/2024 11:33 AM EDT Pulse 71 11/26/2024 11:33 AM EDT Temperature 36.1 C (96.9 F) 09/07/2020 9:07 AM EDT Respiratory Rate 16 01/01/2020 11:44 AM EDT Oxygen Saturation 95% 11/26/2024 11:33 AM EDT Inhaled Oxygen Concentration - - Weight 101 kg (223 lb) 11/26/2024 11:33 AM EDT Height 175.3 cm (5' 9.02 ) 11/26/2024 11:33 AM E DT Body Mass Index 32.91 11/26/2024 11:33 AM EDT Plan of Treatment Upcoming Encounters Date Type Department Care Team (Late st Contact Info) Description 07/28/2025 11:30 AM EDT Office Visit [facility] [address] [facility] [facility] [address] [place] [address] Avni Mitchell MD [address] [facility] [address] [place], [place] [id number] Health Maintenance Due Date Last Done Comments COLOGUARD 2002 COLON CANCER SCREENING 5 YEA R SIGMOIDOSCOPY 2002 [address] COLONOGRAPHY 2002 FECAL OCCULT BLOOD TEST 2002 FIT Testing (1 year) 2002 ANNUAL WELLNESS VISIT 01/21/2019 HEPATITIS C SCREENING 01/21/2019 DIABETIC FOOT EXAM 03/09/2022 03/09/2021, 1 , 03/09/2021, Additional history exists DIABETIC EYE EXAM 10/06/2024 10/07/2023, 10/19/2022 INFLUENZA VACCINE 12/18/2024 02/21/2022, 02/06/2018 COVID-19 Vaccine (4 - 2024-2 6 season) 2025 05/18/2022, 06/13/2021, 08/19/2020, Additional history exists LIPID PANEL 05/19/2025 05/19/2024, 08/2023, 12/18/2022, Additional history exists HEMOGLOBIN A1C 05/29/2025 11/26/2024, 04/21, 05/23/2023, Additional history exists URINE MICROALBUMIN-CREATININ E RATIO (uACR) 11/27/2025 11/27/2024, 05/23/2023, 04/19/2022 TDAP/TD VACCINES (2 - Td or Tdap) 11/07/2027 018 COLONOSCOPY 05/20/2029 05/20/2019, 03/03/2019 COLORECTAL CANCER SCREENING 05/20/2029 Pneumococcal Vaccine 50+ Completed 12/12/2022, 10/19 ZOSTER VACCINE Completed 02/12/2023, 12/12/2022 Goals Goal Patient Goal Type Associated Problems Recent Progress Patient-Stated? Author Specialty Pharmacy General Goal General Not on track( 025 12:36 PM EDT) No Montse Michelle, PharmD Note: A1C < 7 % Lab Results Component Value Date HGBA1c 7.6% 11/26/2024 Patient seen in clinic. He is tolerating Farxiga well. His A1c increased to 7.6% today. Encouraged him to work on meal planning and physical activity and discussed benefits. He has not been checking his BG; however, realizes the importance and plans to restart. Will marilee not on track with increased in A1c and follow up at next encounter. sdg Phone 11/10/2024 Patient tolerating medication well. Just filled 3 month supply of specialty medication last month. Patient is adherent and taking as prescribed. Will marilee on track and follow up at next appointment. RS HGBA1c 7.2 05/19/2024 A1c increased. Regimen staying the same. Plan to focus more on diet and exercise. MS Virtual 04/23/2024 Patient tolerating medication well. Patient states he does not miss any medication doses. Will marilee on track and follow up at next appointment. RS 11/06/2023 Phone assessment. No new values, but patient has been well-controlled for 2+ years and is adherent to therapy. Will assume patient continues on track with goal until objective values indicate otherwise. A1C to be obtained at next appointment. KL HGBA1C 6.6 (A) 05/23/2023 At goal, no changes. HGBA1C 6.2 12/18/2022 At goal, no changes. HGBA1C 7.0 08/22/2022 At goal, no changes. HGBA1C 6.90 (H) 04/19/2022 POC A1C Machine Down, Obtained via Lab. Provider anticipates still well-controlled, and patient maintains adherence to diabetes therapies. Marking as on track, but will follow-up on labs when resulted and provide update. 04/23: Lab from 04/19 Resulted, 6.9% HGBA1C 7.0 01/01/2022 [employer] Enrollment Medical Devices Implanted Type Area Well Service Pump Equipment Operator Device Identifier Shelf Expiration Date Model / Serial / Lot Mesh Flut Sht 3x6in - [id number] Implanted:Qt y: 1 on 12/30/2019 by Master Fritz MD at [facility] Implant Right: Inguinal BARD ELECTROPHYSIOLOGY 05/16/2024 [id number] / / [id number] Procedures Procedure Name Priority Date/Time Associated Diagnosis Comments POCT GLYCOSYLATED HEMOGLOBIN (HGB A1C) Routine 11/26/2024 11:35 AM EDT Type 2 diabetes mellitus with hyperglycemia, without long-term current use of insulin LIPID PANEL Routine 05/19/2024 10:58 AM EST Type 2 diabetes mellitus with hyperglycemia, without long-term current use of insulin SCANNED - EYE EXAM 10/07/2023 MICROALBUMIN / CREATININE URINE RATIO Routine 05/23/2023 12:16 PM EST Type 2 diabetes mellitus with hyperglycemia, without long-term current use of insulin SCANNED - COLONOSCOPY 03/03/2019 from Last 3 Months or Most Recently Relevant to Health Maintenance Results * (ABNORMAL) POC Glycosylated Hemoglobin (Hb A1C) (11/26/2024 11:35 AM EDT) Hemoglobin A1C 7.6(A) 4.5 - 5.7 % [facility] Lot Number [id number] [facility] Expiration Date 07/15/2026 [facility] Blood 11/26/2024 11:3 5 AM EDT Avni Mitchell MD POINT OF CARE TEST ORDERA BLES Final Result [facility]
[address] [place] [address], * (ABNORMAL) Lipid Panel (05/19/2024 10:58 AM EST) Pathologist [facility] Total Cholesterol 207(H) 0 - 200 mg/dL 05/19/2024 7:14 PM EST [facility] Triglycerides 145 0 - 150 mg/dL 05/19/2024 7:14 PM EST [facility] HDL Cholesterol 39(L) 40 - 60 mg/dL 05/19/2024 7:14 PM EST [facility] LDL Cholesterol 142(H) 0 - 100 mg/dL 05/19/2024 7:14 PM EST [facility] VLDL Cholesterol 26 5 - 40 mg/dL 05/19/2024 7:14 PM EST [facility] LDL/HDL Ratio 3.56 05/19/2024 7:14 PM EST [facility] Blood Structure of left upper limb / Unknown Venipuncture / Unknown 05/19/2024 10:58 AM EST 05/19/2024 10:58 AM EST Narrative [facility] - 05/19/2024 7:14 PM EST Cholesterol Reference Ranges (U.S. Department of Health and Human Services ATP III Classifications) Desirable <200 mg/dL Borderline High 200-239 mg/dL High Risk >240 mg/dL Triglyceride Reference Ranges (U.S. Department of Health and Human Services ATP III Classifications) Normal <150 mg/dL Borderline High 150-199 mg/dL High 200-499 mg/dL Very High >500 mg/dL HDL Reference Ranges (U.S. Department of Health and Human Services ATP III Classifications) Low <40 mg/dl (major risk factor for CHD) High >60 mg/dl ('negative' risk factor for CHD) LDL Reference Ranges (U.S. Department of Health and Human Services ATP III Classifications) Optimal <100 mg/dL Near Optimal 100-129 mg/dL Borderline High 130-159 mg/dL High 160-189 mg/dL Very High >189 mg/dL Avni Mitchell MD LAB BLOOD ORDERABLES Victoria l Result [facility]
[address] [place] [address], [place] [phone] * EYE EXAM SCANNED (10/07/2023) Anatomical Region Laterality Modality Other Jun Mojica MD CHART REVIEW TABS F inal Result * Microalbumin / Creatinine Urine Ratio - Urine, Clean Catch (05/23/2023 12:16 PM EST) Creatinine, Urine 46.4 Not Estab. mg/dL [facility] Microalbumin, Urine <3.0 Not Estab. ug/mL [facility] Comment:Verified by repeat analysis Microalbumin/Cre atinine Ratio <6 0 - 29 mg/g creat [facility] Comment: Normal: 0 - 29 Moderately increased: 30 - 300 Severely increased: >300 Urine Urine specimen obtained by clean catch procedure / Unknown 05/23/2023 12:16 PM EST 05/23/2023 Comment:Urine Release to [facility] Narrative [facility] - 05/24/2023 5:35 AM EST Performed at: 01 - [facility] [address] [id number] Energy Broker: Lupillo Pierce PhD, Phone: [phone] Avni Mitchell MD URINE ORDERABLES Final Re sult Performing Organization Address City/[facility]/ZIP Co de Phone Number [facility] [address] [place] [address], [place] [phone] [facility] [address] [place] [address], [place] [phone] * SCANNED - COLONOSCOPY (03/03/2019) Reed Walker MD CHART REVIEW REYS Victoria tomas Result from Last 3 Months or Most Recently Relevant to Health Maintenance Insurance [employer] PPO Advance Directives * CPR (Attempt to Resuscitate) (Latest Code Status on File) Date Activated Date Inactivated Comments 12/29/2019 7:28 PM 01/01/2020 6:09 PM Question Answer Comments Code Status (Patient has no pulse and is not breathing): CPR (Attempt to Resuscitate) Medical Interventions (Patie nt has pulse or is breathing): Full Level Of Support Discussed With: Patient Care Teams Sheeter Waxer Operator Relationship Specialty Start Date End Date Eric Nelson MD PCP - General Family Medicine 02/26/22
--- OUTSIDE RECORDS SUMMARY | 2025-04-12 13:54 | XMS_ITS | Clinical Summary ---
Author Organization [facility] Address [address] [place] [id number] Phone [email or web address] Care Team Providers Care Hardware Trainer Name Role Phone [place] Syed Primary Care Provider Unavailabl e Allergies No known active allergies Medications atorvastatin (LIPITOR) 20 MG tablet 07/30/2018 Active olmesartan (BENICAR) 40 MG tablet 10/18/2008 Active ACCU-CHEK KIMBERLY PLUS test strip 08/13/2018 Act kavon ONETOUCH DELICA LANCETS 33G misc 06/26/2018 Ac tive metFORMIN XR (GLUCOPHATE-XR) 500 MG 24 hr tablet 07/23/2018 Active COSENTYX SENSOREADY 300 DOSE 150 MG/ML solution auto-injector 07/25/2018 Activ e Active Problems Problem Noted Date Diagnosed Date Encounter for screening for cardiovascular disor ders 07/25/2018 Prediabetes 10/18/2017 Hypertension 06/29/2007 Psoriasis 12/18/1994 Immunizations Immunization Administration Dates Next Due Covid-19 (Moderna Milam, 12yrs+) (CVX-[id number]) 2020,07/21/2020 Family History Medical History Relation Name Comments Heart disease Father Hypertension Father Heart attack Mother Heart disease Mother Hypertension Mother Relation Name Status Comments Father Mother Social History Tobacco Use Types Packs/Day Years Used Date Smoking Tobacco: Never Smokeless Tobacco: Never Alcohol Use Standard Drinks/Week Comments Yes 2 (1 standard drink = 0.6 oz pur e alcohol) 2 shots twice per week Intimate Partner Violence Answer Date R ecorded Insults You Not on file 08/29/2020 Threatens You Not on file 08/29/2020 Screams at You Not on file 08/29/2020 Physically Hurt Not on file 08/29/2020 Intimate Partner Violence Score Not on file 08/29/2020 Stress Answer Date Recorded Stress in your Life 0 06/29/2020 Dealing with Stress Not on file 06/29/2020 Sex and Gender Information Value Date Recorded Sex Assigned at Not on file 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 Gender Identity Not on file Sexual Orientation Not on file Last Filed Vital Signs Vital Sign Reading Time Taken Comments Blood Pressure 117/74 01/16/2019 10:10 AM EDT Pulse 74 01/16/2019 10:10 AM EDT Temperature 36.7 C (98 F) 08/26/2018 3:19 PM EDT Respiratory Rate 20 08/26/2018 3:19 PM EDT Oxygen Saturation 97% 08/26/2018 3:19 PM EDT Inhaled Oxygen Concentration - - Weight 103 kg (228 lb) 08/26/2018 3:19 PM EDT Height 175.3 cm (5' 9 ) 08/26/2018 3:19 PM EDT Body Mass Index 33.67 08/26/2018 3:19 PM EDT Plan of Treatment Health Maintenance Due Date Last Done Comments CT Colonography 1957 DNA Cologuard 1957 Dental Cleaning/Exam 1957 FIT or FOBT Test 1957 Sigmoidoscopy 1957 Tetanus Diphtheria and Pertussis Immunization (1 - Tdap) 1976 Pneumococcal: 50+ Years (1 o f 1 - PCV) 10/05/2007 Zoster Immunization (1 of 2) 10/05/2007 Covid-19 Immunization (3 - season) 2025 08/19/2020, 07/21/2020 Influenza Immunization (#1) 2025 Colonoscopy 12/19/2027 12/18/2017 Colorectal Cancer Screening Combo 12/19/2027 HIB Immunization Aged Out No longer e ligible based on patient's age to complete this topic HPV Immunization Aged Out No longer e ligible based on patient's age to complete this topic Hepatitis A Immunization Aged Out No longer eligible based on patient's age to complete this topic Hepatitis B Immunization Aged Out No longer eligible based on patient's age to complete this topic Polio Immunization Aged Out No longer eligible based on patient's age to complete this topic Insurance ANTHEM NO COPAY NB Care Teams Hardware Trainer Relationship Specialty Start Date End Date Dayton Syed PCP - General 11/14/17
--- OUTSIDE RECORDS SUMMARY | 2025-04-12 13:54 | XMS_ITS | Encounter Summary ---
Author Organization Healthcare Address [address] [place] [address] Care Team Providers Care Assistant Technician Name Role Phone Stephane Mckay MD Primary Care Provider [phone] Eric Nelson MD Primary Care Provider Vicki vailable Encounter Details Date Type Department Care Team (Late st Contact Info) Description 10/12/2021 Orders Only External Location [address] [place] [address] Stephane Mckay MD [address] [place] [id number] Social History Tobacco Use Types Packs/Day Years [...] Diagnosis Comments MR [facility] OUTSIDE IMAGES 10/12/2021 11:55 AM EDT documented in this encounter Results * MR [facility] OUTSIDE IMAGES (10/12/2021 11:55 AM EDT) Anatomical Region Laterality Modality Magnetic Resonan ce 10/12/2021 11:5 5 AM EDT Stephane Mckay MD IMG MRI PROCEDURES Final Re sult documented in this encounter Visit Diagnoses Not on filedocumented in this encounter Care Teams Assistant Technician Relationship Specialty Start Date End Date Stephane Mckay MD [address] [place] [id number] PCP - General 10/30/21 04/07/23 Eric Nelson MD [address] [address] PCP - General Family Medicine 04/08/23 documented as of this encounter
== END 2025-04-12 23:59 | disposition home or self-care (01) ==
LOC: LAB 13:41
PROVIDERS: PCP Family Medicine; Visit Provider Family Medicine
DX: R19.7 Diarrhea, unspecified (principal)
CPT/HCPCS: 87045; 87177; 87507